=== PATIENT | female | born 1950 | race African-American/Black ===

== ENCOUNTER 2018-02-14 12:44 | Emergency (ER) | payer OTHER, MEDICARE, BC ==
[~2018-02-14] VITALS: Ht 167.6 cm; Wt 74.8 kg
[2018-02-14 12:52] VITALS: BP_SYST 152
[2018-02-14 15:23] VITALS: BP_SYST 135
== END 2018-02-14 15:23 | disposition home or self-care (01) ==
LOC: SED 12:44
DX: S43.401A Unspecified sprain of right shoulder joint, initial encounter (principal); S70.01XA Contusion of right hip, initial encounter; R03.0 Elevated blood-pressure reading, without diagnosis of hypertension; Z86.79 Personal history of other diseases of the circulatory system; W18.40XA Slipping, tripping and stumbling without falling, unspecified, initial encounter; Y93.01 Activity, walking, marching and hiking; Y92.89 Other specified places as the place of occurrence of the external cause; Y99.8 Other external cause status
CPT/HCPCS: 72040-TC; 72170-TC; 73030; 73502; 99284

== ENCOUNTER 2019-07-15 08:58 | Emergency (ER) | payer OTHER, MEDICARE, BC ==
[~2019-07-15] VITALS: Ht 170.2 cm; Wt 77.1 kg
[2019-07-15] MEDS ORDERED: methylPREDNISolone SOD SUCC/PF 62.5 MG/ML VIAL IVP ONE (09:00)
[2019-07-15] MEDS ORDERED: NACL 0.9% 1,000 ML IV ONE ×2 (09:00→09:15)
--- NOTE | 2019-07-15 09:00 | NUR ---
Patient to ER bed to gown for evaluation. Side rails up.
[2019-07-15 09:04] VITALS: BP_SYST 132
--- NOTE | 2019-07-15 09:05 | NUR ---
ER Dr. NAVAS at bedside examining patient.
--- NOTE | 2019-07-15 09:10 | NUR ---
Note undone in EDM - 07/15/19 at 1926 by EMBEREDLISANDRO Patient presented to ER C/O NEAR SYNCOPE. Patient A&Ox4, skin pink and warm, afebrile, BIB BLS TO ER, denies n/v/d, pain 0/10. Patient states she was shopping with he daughter when she felt like she was going to faint and sat down and called BLS. Medication Reaction
--- NOTE | 2019-07-15 09:10 | NUR ---
Patient presented to ER C/O Medication Reaction. Patient A&Ox4, skin pink and warm, afebrile, ambulatory to ER, denies n/v/d, pain 12/19. Patient states she has felt this way for 5 days.
[2019-07-15] MEDS ORDERED: DIPHENHYDRAMINE INJ 50 MG/ML VIAL IVP ONE (09:15)
[2019-07-15] MEDS ORDERED: ONDANSETRON HCL 4 MG/2 ML VIAL IVP ONE (09:15)
[2019-07-15] MEDS ORDERED: FAMOTIDINE PF 20 MG/2 ML VIAL IVP ONE (09:15)
[2019-07-15 09:35] LABS: BASOPHILS % (AUTO) 0.8 % (0.0-2.0); EOSINOPHILS % (AUTO) 0.6 % (0.0-4.0); HEMATOCRIT 39.2 % (36-48); HEMOGLOBIN 13.2 g/dL (12.0-16.0); LYMPHOCYTES % (AUTO) 19.4 % (20.5-51.5); MEAN CORPUSCULAR HEMOGLOBIN 30 pg (27-31); MEAN CORPUSCULAR HGB CONC 34 % (32-36); MEAN CORPUSCULAR VOLUME 91 fL (79.0-98.0); MONOCYTES # (AUTO) 0.4 K/uL (0.0-1.0); MONOCYTES % (AUTO) 7.2 % (1.7-9.3); NEUTROPHILS # (AUTO) 3.7 K/uL (1.8-7.7); PLATELET COUNT (AUTO) 218 K/uL (130-430); RED BLOOD CELL COUNT(AUTO) 4.33 MIL/uL (4.2-6.2); RED CELL DISTRIBUTION WIDTH 13.5 % (9.0-15.0); WHITE BLOOD COUNT (AUTO) 5.1 K/uL (4.8-10.8)
[2019-07-15 09:48] LABS: CALCIUM 8.2 mg/dL (8.4-11.0); CREATININE 0.86 mg/dL (0.55-1.30); POTASSIUM 3.7 mmol/L (3.5-5.1)
[2019-07-15 09:53] LABS: ALBUMIN 3.4 g/dL (3.4-4.8); TOTAL BILIRUBIN 0.3 mg/dL (0.0-1.0)
[2019-07-15 12:48] VITALS: BP_SYST 133
--- NOTE | 2019-07-15 12:50 | NUR ---
Patient given written and verbal discharge instructions and verbalizes understanding. ER MD discussed with patient the results and treatment provided. Patient in stable condition. ID arm band removed. IV catheter removed intact and dressing applied, no active bleeding. Rx of Zofran, Atarax and Prednisone given. Patient educated on pain management and to follow up with PMD. Pain Scale 0/10. Opportunity for questions provided and answered. Medication side effect fact sheet provided.
== END 2019-07-15 12:48 | disposition home or self-care (01) ==
LOC: SED 08:58
DX: T78.40XA Allergy, unspecified, initial encounter (principal); Z86.73 Personal history of transient ischemic attack (TIA), and cerebral infarction without residual deficits; X58.XXXA Exposure to other specified factors, initial encounter
CPT/HCPCS: 36415; 80053; 83605; 85025; 87040; 96374; 96375; 99283; J1200; J2405; J2930; J3490; J7030